=== PATIENT | female | born 1940 | race Asian ===

== ENCOUNTER 2024-10-14 09:39 | Emergency (ER) | payer MEDICAID ==
[~2024-10-14] VITALS: Ht 160 cm; Wt 64.0 kg
[2024-10-14 09:42] VITALS: TEMP 96.6
[2024-10-14] MEDS ORDERED: ASCO500T10 PO (10:57)
[2024-10-14] MEDS ORDERED: MULT-213 PO (10:57)
[2024-10-14] MEDS ORDERED: ACET325T53 PO (10:57)
[2024-10-14] MEDS ORDERED: ZINC220C6 PO (10:57)
[2024-10-14] MEDS ORDERED: MAG30ORA PO (10:57)
[2024-10-14] MEDS ORDERED: MAGN400O6 PO (10:57)
[2024-10-14] MEDS ORDERED: ACET-73 PO (10:57)
[2024-10-14] MEDS ORDERED: BISA10SU11 RC (10:57)
[2024-10-14] MEDS ORDERED: ATOR20TA PO (10:57)
[2024-10-14] MEDS ORDERED: ASPI-1169 PO (10:57)
[2024-10-14] MEDS ORDERED: MECL-182 PO (10:57)
[2024-10-14] MEDS ORDERED: BISA5TAB10 PO (10:57)
[2024-10-14] MEDS ORDERED: DOCU100T2 PO (10:57)
[2024-10-14] MEDS ORDERED: NA P133E RC (10:57)
[2024-10-14] MEDS ORDERED: MIRT-90 PO (10:57)
[2024-10-14 12:24] LABS: BASOPHILS % (AUTO) 0.5 % (0.0-2.0); EOSINOPHILS # (AUTO) 0.1 K/uL (0.0-0.7); EOSINOPHILS % (AUTO) 1.4 % (0.0-6.0); HEMATOCRIT 39 % (33-45); HEMOGLOBIN 13.1 g/dL (11.5-14.8); LYMPHOCYTES # (AUTO) 1.4 K/uL (0.8-4.8); LYMPHOCYTES % (AUTO) 17.2 % (20.0-44.0); MEAN CORPUSCULAR HEMOGLOBIN 30 PG (26.0-33.0); MEAN CORPUSCULAR HGB CONC 34 g/dl (31.0-36.0); MEAN CORPUSCULAR VOLUME 89 fL (82-100); MONOCYTES # (AUTO) 0.5 K/uL (0.1-1.30); MONOCYTES % (AUTO) 6.4 % (2.0-12.0); NEUTROPHILS # (AUTO) 6.3 K/uL (1.8-8.9); NEUTROPHILS % (AUTO) 74.5 % (43.0-81.0); PLATELET COUNT (AUTO) 184 K/uL (150-450); RED BLOOD CELL COUNT(AUTO) 4.32 MIL/uL (4.0-5.2); RED CELL DISTRIBUTION WIDTH 14.8 % (11.5-15.0); WHITE BLOOD COUNT (AUTO) 8.4 K/uL (4.3-11.0)
[2024-10-14 12:39] LABS: CALCIUM, SERUM 9.6 mg/dL (8.5-10.1); CREATININE 0.8 mg/dL (0.6-1.3); POTASSIUM 4.6 mmol/L (3.5-5.1)
[2024-10-14 12:49] LABS: PARTIAL THROMBOPLASTIN TIME 28.4 SEC (24.3-34.3); PROTHROMBIN TIME 10.6 SECS (9.2-11.1)
[2024-10-14 14:30] VITALS: BP 138/72; O2SAT 98
== END 2024-10-14 14:47 | disposition short-term general hospital (02) ==
LOC: ER 09:45
DX: S06.6X0A Traumatic subarachnoid hemorrhage without loss of consciousness, initial encounter (principal); I10 Essential (primary) hypertension; E11.9 Type 2 diabetes mellitus without complications; R93.89 Abnormal findings on diagnostic imaging of other specified body structures; R13.10 Dysphagia, unspecified; Z87.440 Personal history of urinary (tract) infections; Z86.73 Personal history of transient ischemic attack (TIA), and cerebral infarction without residual deficits; Z85.9 Personal history of malignant neoplasm, unspecified; W19.XXXA Unspecified fall, initial encounter; Y93.89 Activity, other specified; Y92.89 Other specified places as the place of occurrence of the external cause; Y99.8 Other external cause status
CPT/HCPCS: 36415; 70450-TC; 72125-TC; 80048-TC; 85025-TC; 85730-TC